=== PATIENT | female | born 1970 | race American Indian/Alaskan Native ===

== ENCOUNTER 2019-01-22 14:10 | Emergency (ER) | payer SELFPAY ==
--- NOTE | 2019-01-22 15:21 | Event Note ---
ED Screening Note Date of service: 01/22/19 Time: 15:19 ED Screening Note: This is a 48 y.o. F. that presents to the ER with cough and SOB that started today. PMH HTN, PTSD, asthma, and anxiety Patient states EMS gave a breathing treatment and she feel a little bit better but continue to feel week and cough. Current smoker This initial assessment/diagnostic orders/clinical plan/treatment(s) is/are subject to change based on patients health status, clinical progression and re-assessment by fellow clinical providers in the ED. Further treatment and workup at subsequent clinical providers discretion. Patient/guardian urged not to elope from the ED as their condition may be serious if not clinically assessed and managed. Initial orders include: CXR
[2019-01-22 15:22] VITALS: BP 148/88
--- NOTE | 2019-01-22 15:39 | XRay Report ---
CHEST PA AND LATERAL VIEWS INDICATION: cough and SOB. COMPARISON: None. FINDINGS: Support devices: None. Heart: Within normal limits. Lungs/Pleura: No acute pulmonary or pleural findings. IMPRESSION: 1. No acute findings. Signer Name: Jez Post MD Signed: 01/22/2019 3:35 PM Workstation Name: [id number]
--- NOTE | 2019-01-22 16:31 | Emergency Department Report ---
ED Asthma HPI - General Chief Complaint: Adult Asthma Stated Complaint: ASTHMA/COUGH Time Seen by Provider: 01/22/19 15:18 Source: patient, EMS Mode of arrival: Ambulatory Limitations: No Limitations - History of Present Illness Initial Comments: Mr. Smith is a very pleasant 48-year-old female with history of asthma. She's had cough for one week. Nonproductive. She feels congested as of mucus needs to come out of her chest. She denies fever. She does have history of tobacco abuse. She smokes 5-10 cigarettes per day. Childhood onset asthma. Recently moved from [place]. Requests refill of Advair. ADAME Complaint: "asthma attack", shortness of breath, wheezing -: Gradual, week(s) (1) Asthma History: childhood onset Severity: moderate Context: ran out of meds, smoke exposure, other (hot temperatures outside) Associated Symptoms: dry cough - Related Data Previous Rx's Medication Instructions Recorded Last Taken Type ALBUTEROL Inhaler (OR & NICU) 2 puff IH QID PRN #1 device 01/22/19 Unknown Rx [ProAir HFA Inhaler] Doxycycline Hyclate [Doxycycline 100 mg PO Q12HR 7 Days #14 tab 01/22/19 Unknown Rx Hyclate TAB] Fluticasone/Salmeterol [Advair 1 each IH BID #1 device 01/22/19 Unknown Rx 100-50 Diskus] predniSONE [Deltasone] 3 tab PO QDAY 3 Days #9 tab 01/22/19 Unknown Rx Allergies Allergy/AdvReac Type Severity Reaction Status Date / Time MARIANA Inhibitors Allergy Swelling Verified 01/22/19 15:19 ED Review of Systems ROS: Stated complaint: ASTHMA/COUGH Other details as noted in HPI Comment: All other systems reviewed and negative Constitutional: denies: fever Eyes: denies: eye discharge Respiratory: cough, shortness of breath, wheezing Cardiovascular: denies: chest pain Gastrointestinal: denies: abdominal pain ED Past Medical Hx - Past Medical History Hx Hypertension: Yes Hx Psychiatric Treatment: Yes (PTSD, anxiety) Hx Asthma: Yes - Surgical History Additional Surgical History: x 4, left breast masectomy - Social History Smoking Status: Current Every Day Smoker Substance Use Type: Alcohol - Medications Home Medications: Home Medications Medication Instructions Recorded Confirmed Last Taken Type ALBUTEROL Inhaler (OR & NICU) 2 puff IH QID PRN #1 device 01/22/19 Unknown Rx [ProAir HFA Inhaler] Doxycycline Hyclate [Doxycycline 100 mg PO Q12HR 7 Days #14 tab 01/22/19 Unknown Rx Hyclate TAB] Fluticasone/Salmeterol [Advair 1 each IH BID #1 device 01/22/19 Unknown Rx 100-50 Diskus] predniSONE [Deltasone] 3 tab PO QDAY 3 Days #9 tab 01/22/19 Unknown Rx ED Physical Exam - General Limitations: No Limitations General appearance: alert, in no apparent distress, other (speaking for sentences, no work of breathing, frequent cough) - Head Head exam: Present: atraumatic, normocephalic - Eye Eye exam: Present: normal appearance - ENT ENT exam: Present: mucous membranes moist - Neck Neck exam: Present: normal inspection, full ROM - Respiratory Respiratory exam: Present: wheezes. Absent: respiratory distress, rales, rhonchi, accessory muscle use, decreased breath sounds, prolonged expiratory - Cardiovascular Cardiovascular Exam: Present: regular rate, normal rhythm, normal heart sounds. Absent: systolic murmur, diastolic murmur, rubs, gallop - GI/Abdominal GI/Abdominal exam: Present: soft, normal bowel sounds. Absent: distended, tenderness, guarding - Extremities Exam Extremities exam: Present: normal inspection - Back Exam Back exam: Present: normal inspection - Neurological Exam Neurological exam: Present: alert, oriented X3 - Psychiatric Psychiatric exam: Present: normal affect, normal mood - Skin Skin exam: Present: warm, dry, intact, normal color. Absent: rash ED Course Vital Signs 01/22/19 15:20 Temperature 97.5 F L Pulse Rate 89 Respiratory 18 Rate Blood Pressure 148/88 O2 Sat by Pulse 96 Oximetry ED Medical Decision Making - Medical Decision Making Mrs. Lowe presents with acute asthma exacerbation and bronchitis. With hx of tobacco abuse, antibiotics are indicated. Symptoms improved with duoneb in the ED rx: doxycycline, albuterol, advair, prednisone Critical care attestation.: If time is entered above; I have spent that time in minutes in the direct care of this critically ill patient, excluding procedure time. ED Disposition Clinical Impression: Acute asthma exacerbation, Acute bronchitis Disposition: TO HOME OR SELFCARE Is pt being admited?: No Does the pt Need Aspirin: No Condition: Stable Instructions: How to Stop Smoking (ED) Prescriptions: Fluticasone/Salmeterol [Advair 100-50 Diskus] 1 each IH BID #1 device predniSONE [Deltasone] 3 tab PO QDAY 3 Days #9 tab Doxycycline Hyclate [Doxycycline Hyclate TAB] 100 mg PO Q12HR 7 Days #14 tab ALBUTEROL Inhaler (OR & NICU) [ProAir HFA Inhaler] 2 puff IH QID PRN #1 device PRN Reason: Shortness Of Breath Referrals: [facility] [Outside] - 3-5 Days Forms: Work/School Release Form(ED)
[2019-01-22] MEDS ORDERED: DELTASONE PO ONE (16:34)
[2019-01-22] MEDS ORDERED: VIBRAMYCIN PO ONE (16:34)
[2019-01-22] MEDS ORDERED: DUONEB *Not for PRN Use IH ONE (16:37)
== END 2019-01-22 17:33 | disposition home or self-care (01) ==
LOC: ED 14:10
DX: J45.21 Mild intermittent asthma with (acute) exacerbation (principal); J20.9 Acute bronchitis, unspecified; I10 Essential (primary) hypertension; J45.909 Unspecified asthma, uncomplicated; F41.9 Anxiety disorder, unspecified; F43.10 Post-traumatic stress disorder, unspecified; F17.200 Nicotine dependence, unspecified, uncomplicated; Z91.09 Other allergy status, other than to drugs and biological substances
CPT/HCPCS: 71046; 94644; 99284; J7512